=== PATIENT | male | born 1965 | race African-American/Black ===

== ENCOUNTER 2024-11-02 12:31 | Outpatient (OUT) | payer OTHER, SELFPAY ==
--- NOTE | 2024-11-02 13:28 | P.CN_ITS ---
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 Pt under the care of [facility] pain management previously, recently moved to [place] and is transitioning care. Patient has established with PCP Bree Silvestre, unfortunately patient has chronic memory impairment/forgetfulness and is a poor historian. He reports his pain started around 18 years ago and he has been evaluated by numerous specialist for his chronic pain and flare ups. Historically has had at least 4 flare ups of his Fritz Mathur Syndrome requiring high dose steroids, notes stress brings on his headaches and flare ups and he develops right eye twitching and then heaviness/drooping before he loses control of his eye for 6 months. we have requested records from patients previous pain management physician and PCP but have yet to receive records, [facility] consistent with regular fills of oxycodone 5 30 tabs/30 days which pt reports significantly improves his pain and quality of life. pt unable to recall prior medications or injections. cc:: CC: Tasha Blackwell NP Exam Narrative Exam Narrative: asymptomatic HTN Eye Common normals: PERRL Alignment: exotropia Exotropic laterality: right Eyelid: eyelids normal Assessment and Plan Assessment and Plan (1) Fritz-Mathur syndrome: (2) Chronic pain syndrome: (3) Chronic use of opiate drug for therapeutic purpose: Plan 59 year old male with chronic pain of right eye and headaches secondary to fritz mathur syndrome well controlled with oxycodone 5mg once daily as needed. pt denies medication side effects, denies alcohol or marijuana use. will update UDS today. narcan discussed and prescribed. will refill/continue oxycodone 5 once daily as needed for moderate to severe pain, 7 tabs to last 7 days while we await prior physician records and review UDS. pt agreeable to plan of care. f/u 1 month to review medication regimen.
== END 2024-11-02 12:32 | disposition home or self-care (01) ==
PROVIDERS: Visit Provider Nurse Practitioner
DX: H49.40 Progressive external ophthalmoplegia, unspecified eye (principal); G89.4 Chronic pain syndrome; Z79.891 Long term (current) use of opiate analgesic
CPT/HCPCS: G0463